=== PATIENT | male | born 1950 | race Caucasian/White ===

== ENCOUNTER → 2017-06-18 | Outpatient (CLI) | payer OTHER | LOC: FIMAGING 09:10 | PROVIDERS: ATTEND Orthopaedic Surgery | DX: M16.0 Bilateral primary osteoarthritis of hip (principal); M51.36 Other intervertebral disc degeneration, lumbar region; M51.37 Other intervertebral disc degeneration, lumbosacral region; M48.061 Spinal stenosis, lumbar region without neurogenic claudication; M48.56XA Collapsed vertebra, not elsewhere classified, lumbar region, initial encounter for fracture ==

== ENCOUNTER 2017-06-25 05:48 | Inpatient (IN) | payer OTHER ==
[2017-06-25] MEDS ORDERED: ROPIVACAINE 0.2% 80 MG, EPINEPHrine 0.2 MG, KETOROLAC TROMETHAMINE 30 MG in SYRINGE 0 ML IU ONE (06:00)
[2017-06-25] MEDS ORDERED: TRANEXAMIC ACID 3,000 MG in NS (SYRINGE) 50 ML IRR ONE (06:00)
[2017-06-25] MEDS ORDERED: ACETAMINOPHEN 325 MG TAB PO ONE (07:01)
[2017-06-25] MEDS ORDERED: ceFAZolin 2 GM/SWFI 2 GM/20 ML SYR IVP ONE (07:01)
[2017-06-25] MEDS ORDERED: FAMOTIDINE 20 MG TAB PO ONE (07:01)
[2017-06-25] MEDS ORDERED: DEXAMETHASONE 4 MG/ML VIAL IVP ONE (07:01)
[2017-06-25] MEDS ORDERED: LIDOCAINE 1% 2 ML INJ ID PRN (07:02)
[2017-06-25] MEDS ORDERED: LR 1,000 ML IV ONE (07:02)
[2017-06-25] MEDS ORDERED: TRANEXAMIC ACID 3,000 MG/50 ML BAG IRR ONE (07:03)
--- NOTE | 2017-06-25 07:10 | PDHPUP ---
History & Physical Update H&P update statement: This history and physical update is based on an assessment of the patient which was completed after admission or registration (within 24 hours), but prior to the surgery/procedure. H&P update: H&P reviewed & patient examined, no change in patient's condition since H&P completed
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
[2017-06-25] MEDS ORDERED: fentaNYL 100 MCG/2 ML INJ ONE (08:05)
[2017-06-25] MEDS ORDERED: PROPOFOL/EMULSION 500 MG/50 ML BOTTLE IV ONE (08:06)
[2017-06-25] MEDS ORDERED: LIDOCAINE 2% 100 MG/5 ML SYR ONE (08:23)
[2017-06-25] MEDS ORDERED: MEPERIDINE 25 MG/0.5 ML AMP IVP PRN (10:03)
[2017-06-25] MEDS ORDERED: ONDANSETRON 4 MG/2 ML VIAL IVP PRN ×2 (10:03→10:06)
[2017-06-25] MEDS ORDERED: ALBUTEROL 3 ML DEYVIAL IH PRN (10:03)
[2017-06-25] MEDS ORDERED: NALOXONE HCL 0.4 MG/ML INJ IVP PRN (10:03)
[2017-06-25] MEDS ORDERED: fentaNYL 100 MCG/2 ML INJ IVP PRN (10:03)
--- NOTE | 2017-06-25 10:04 | POSTANESTH ---
Post Anesthetic Evaluation Cardiovascular Status: Similar to Pre-Op Cond Respiratory Status: Similar to Pre-op Cond. Level of Consciousness/Mental Status: Mildly Sleepy, Arousable Pain Control: Adequate, Prn Tx Ordered Nausea/Vomiting Control: Adequate, Prn Tx Ordered Complications Possibly Related to Anesthesia: None Noted
--- NOTE | 2017-06-25 10:05 | POSTOPPROG ---
Post Op Note Date of Operation: 06/25/17 Surgeon: Noah Lacy Structurer: karrie lacy Anesthesiologist: dr. harris Anesthesia: Spinal Pre-op Diagnosis: left hip OA Post-op Diagnosis: same Indication: left hip pain due to OA that failed conservative measures Procedure: L SEAN ant approach, robot assisted, computer navigation used Findings: L hip severe OA Inf/Abcess present in the surg proc area at time of surgery?: No EBL: 100-500
[2017-06-25] MEDS ORDERED: PROMETHAZINE HCL 25 MG/ML INJ IVP PRN (10:06)
[2017-06-25] MEDS ORDERED: POLYETHYLENE GLYCOL 3350 17 GM PKT PO PRN (10:06)
[2017-06-25] MEDS ORDERED: diphenhydrAMINE 25 MG CAP PO PRN (10:06)
[2017-06-25] MEDS ORDERED: TEMAZEPAM 15 MG CAP PO PRN (10:06)
[2017-06-25] MEDS ORDERED: BISACODYL 10 MG SUPP PR PRN (10:06)
[2017-06-25] MEDS ORDERED: PROMETHAZINE HCL 25 MG SUPPR PR PRN (10:06)
[2017-06-25] MEDS ORDERED: ONDANSETRON DISINTEGRATING 4 MG TAB PO PRN (10:06)
[2017-06-25] MEDS ORDERED: METOCLOPRAMIDE 10 MG/2 ML VIAL IVP PRN (10:06)
[2017-06-25] MEDS ORDERED: MAGNESIUM HYDROXIDE 30 ML UDCUP PO PRN (10:06)
[2017-06-25] MEDS ORDERED: CYCLOBENZAPRINE 10 MG TAB PO PRN (10:06)
[2017-06-25] MEDS ORDERED: LACTULOSE 20 GM/30 ML UDCUP PO PRN (10:06)
[2017-06-25] MEDS ORDERED: DIPHENOXYLATE/ATROPINE LOMOTIL 1 TAB PO PRN (10:06)
[2017-06-25] MEDS ORDERED: oxyCODONE IR 5 MG TAB PO PRN (10:06)
--- NOTE | 2017-06-25 12:25 | PDMN ---
Medical Necessity Medical necessity: [facility] IP only surgery; cpt 72726 L SEAN
[2017-06-25] MEDS: ACETAMINOPHEN 325 MG TAB PO SCH ×3 (12:42→23:29)
[2017-06-25] MEDS: LR 1,000 ML IV SCH (12:44)
--- NOTE | 2017-06-25 13:21 | GOP ---
[f rep st] OPERATIVE REPORT DATE OF OPERATION: 06/25/2017 SURGEON: Nahum Edward MD LUNCH COOK: Jess Edward P.A.-C. ANESTHESIA: Spinal. PREOPERATIVE DIAGNOSIS: Left hip osteoarthritis. POSTOPERATIVE DIAGNOSIS: Left hip osteoarthritis. PROCEDURE PERFORMED: Left total hip replacement with computer navigation. FINDINGS: ESTIMATED BLOOD LOSS: 200 cc. INDICATIONS: The patient has progressively worsening arthritis of the hip which has failed medical m anagement. The patient understands the treatment option including continued non-operative care and h as selected surgical intervention. The patient has decided to undergo total hip arthroplasty via the direct anterior approach understanding the risks of the procedure including, but not limited to, tiera rovascular injury, infection, persistent pain, component wear and loosening, deep venous thrombosis, pulmonary embolism, limb length inequality (including dislocation), and intraoperative fractures. DESCRIPTION OF PROCEDURE: After proper identification of the patient including verification and cesar ing the surgical site, the patient was brought to the operating room and placed in the supine positio n. All bony prominences were well padded. Anesthesia was induced without complication and intraveno us prophylactic antibiotics were administered prior to skin incision. After prepping and draping in the usual sterile fashion, attention was drawn to the contralateral pel vis for attachment of the computer navigation tracker. Three percutaneous incisions were made over t he iliac crest and the pelvic tracker was affixed using threaded 3.5 mm pins yielding excellent fixat ion. Using computer navigation the patient's leg length and topographical pelvic anatomy was registe red without complication. Attention was then drawn to surgical exposure of the hip. An incision was made with a #10 Bard Patricia r blade starting 3 cm lateral and 3 cm distal to the anterior superior iliac spine measuring 8 cm to 10 cm and coursing distally toward the greater trochanter. The skin and subcutaneous tissues were di vided sharply down the fascia kwasi. The fascia kwasi was incised in line with the skin incision expos ing the underlying tensor fascia kwasi muscle. This muscle was bluntly elevated from the fascia and t he first extracapsular Cobra retractor was placed laterally at the junction of the superior femoral n ruth and greater trochanter. The lateral femoral circumflex vessels were identified, cauterized and d ivided with the Aquamantys bipolar cautery. The deep investing fascia of the TFL was divided to allo w proper mobilization of the muscle preventing damage during retraction. The reflected head of the r ectus femoris muscle was elevated off the anterior hip capsule and a medial Cobra retractor was place d just proximal to the lesser trochanter. The anterior capsulotomy was made sharply from the superolateral acetabulum to the saddle junction of the superior femoral neck and greater trochanter, then coursing inferomedial towards the lesser troc hanter. The retractors were then placed in the intracapsular position for femoral neck osteotomy. C orresponding to preoperative templating the osteotomy was made with the oscillating saw protecting th e greater trochanter and soft tissues. The femoral head was removed from the acetabulum with a corks crew and confirmed to be severely arthritic with exposed bone, deformity and osteophytes. Similar fi nding was confirmed in the acetabulum. The Arch table extension was then placed in 40 degrees external rotation. Attention was then drawn t o the acetabular preparation. After placement of the anterior and posterior Cobra retractors outside the labrum and intrascapular the circumferential labrum was removed sharply. The foveal contents we re then removed and hemostasis obtained with cautery. The anatomy of the acetabulum was then registe red using computer navigation. The first reamer selected was sized using the removed femoral head. Reaming began with robotic jamey t at 40 degrees of abduction and 20 degrees of anteversion using computer navigation. Reaming ceased 0 mm less than the definitive acetabular component. The final acetabular component was inserted usi ng the computer to achieve proper orientation yielding excellent purchase and stability in the acetab ulum. The final acetabular liner was then placed and its seating confirmed. Attention was then turned to the femur. The Arch table extension was placed in extension and adducti on delivering the osteotomized femoral neck into the wound. A 2-pronged femoral elevator was placed at the calcar and another at the tip of the greater trochanter. The posterolateral capsule was relea sed with cautery allowing mobilization of the femur lateral and anterior for preparation. The news assignment editor al rotators were visualized and preserved. A curette and rongeur were used to open the starting poin t for broaching. Serial broaching started with the #0 broach and ended with the broach that exhibited excellent fit in the proximal femur. A change in pitch during mallet strikes was accompanied by the inability to advance the broach any further. The trial reduction was performed and fluoroscopic claude igation was utilized to check limb length. Adjustments were made to equalize limb length accordingly . After the final trials were accepted they were removed and the wound was copiously lavaged. The femo ral component was seated to the same depth as the final broach and the femoral head was impacted onto the clean trunnion. The hip was then reduced for the final time and once more fluoroscopic navigati on used to check that limb length equality was achieved. The wound was irrigated and closed in layers, the fascia kwasi with 2-0 Quill, the subcutaneous tissue with a 2-0 Quill, and the skin with Dermabond, including the small incisions for computer navigation . Sterile dressings were applied. Final sharps and sponge counts were accurate. The patient was th en transferred to a hospital bed and brought to the recovery room in stable condition. IMPLANTS: Accolade II size 6 at 132. Acetabular component, a 58 mm Tritanium. The liner is a Tride nt X3, 36 mm. The head is a Biolox Delta 36 mm, +0. /[id number]/MODL
[2017-06-25] MEDS: ceFAZolin 2 GM/DEXTROSE 100 ML IV SCH ×2 (14:39→21:51)
[2017-06-25] MEDS: SENNOSIDES/DOCUSATE SODIUM TAB PO SCH (20:15)
[2017-06-25] MEDS: FAMOTIDINE 20 MG TAB PO SCH (20:15)
[2017-06-25] MEDS: ASPIRIN 81 MG CHEWABLE TAB PO SCH (20:15)
[2017-06-26] MEDS: LR 1,000 ML IV SCH (05:17)
[2017-06-26] MEDS: ACETAMINOPHEN 325 MG TAB PO SCH (05:58)
[2017-06-26] MEDS: ASPIRIN 81 MG CHEWABLE TAB PO SCH (08:34)
[2017-06-26] MEDS: FAMOTIDINE 20 MG TAB PO SCH (08:34)
[2017-06-26] MEDS: SENNOSIDES/DOCUSATE SODIUM TAB PO SCH (08:34)
[2017-06-26 08:37] VITALS: BP 104/60
--- NOTE | 2017-06-26 08:45 | SOAPPROG ---
SOAP Progress Note Assessment/Plan: Assessment: Patient is doing well POD 1 s/p L SEAN Pain management: pain is well controlled on oral pain meds. VTE ppx: recommend aspirin 81 mg BID for 4 weeks, cont MAGUI and SCDs Anemia: level is expected initially postop. Asymptomatic. Continue to monitor D/c planning: d/c to home today pending release from PT Plan: 06/26/17 08:45 Subjective: Parish is doing well today, denies SOB, chest pain and N/V. Objective: Vital Signs Temp Pulse Resp BP Pulse Ox 36.8 C 75 15 104/60 94 06/26/17 08:00 06/26/17 08:00 06/26/17 08:00 06/26/17 08:00 06/26/17 08:00 Laboratory Results 06/26/17 05:00 06/25/17 06/26/17 06/27/17 05:59 05:59 05:59 Intake Total 2129 1400 Output Total 2250 Balance -121 1400 LLE: incision dressing is clean and dry, NVI, +pf/df ICD10 Worksheet Patient Problems: Problems Problem Status Onset Primary localized osteoarthritis of left hip Acute
--- NOTE | 2017-06-26 13:42 | GDS ---
[f rep st] DISCHARGE SUMMARY ADMISSION DIAGNOSIS: Left hip osteoarthritis. DISCHARGE DIAGNOSIS: Left hip osteoarthritis. PROCEDURE: Left total hip arthroplasty. VTE PROPHYLAXIS: Recommend aspirin 81 mg twice daily for 4 weeks. BRIEF DESCRIPTION OF HOSPITAL STAY: Patient was admitted for an elective joint arthroplasty. The pa macynt tolerated the procedure well and has passed physical therapy. The patient was given appropriat e antibiotic prophylaxis and venous thromboembolism prophylaxis. The patient's pain was well control led on oral pain medication, patient was holding down food, and had urinated. Decision was made to d ischarge the patient. The patient was given post-operative prescriptions pre-operatively. PLAN: To follow as scheduled in Dr. Edward's office on July 16 at 10:15. /[id number]/MODL
== END 2017-06-26 11:18 | disposition home or self-care (01) | DRG 470 ==
LOC: F3N 05:48
PROVIDERS: ADMIT Orthopaedic Surgery; ATTEND Orthopaedic Surgery
PROC: 0SRB04Z Replacement of Left Hip Joint with Ceramic on Polyethylene Synthetic Substitute, Open Approach (ICD-10-PCS; principal; 2017-06-25 08:15)
DX: M16.12 Unilateral primary osteoarthritis, left hip (principal)
CPT/HCPCS: 97110-GP; 97116-GP; 97161-GP; 97530-GP; G8978-GP-CI; G8979-GP-CH; G8979-GP-CI; G8980-GP-CI; J0171; J0690; J1100; J1885; J2001; J2704; J2795; J3010